=== PATIENT | female | born 1980 | race Caucasian/White ===

== ENCOUNTER 2019-05-17 04:36 | Emergency (ER) | payer OTHER ==
[~2019-05-17] VITALS: Ht 149.9 cm; Wt 52.2 kg
[2019-05-17] MEDS ORDERED: DEPAKOTE ER250 MG (04:43)
[2019-05-17] MEDS ORDERED: MIRALAX510 GM PO (08:16)
== END 2019-05-17 08:39 ==
LOC: ER 04:36
DX: R10.31 Right lower quadrant pain (principal)